=== PATIENT | male | born 1945 | race Caucasian/White ===

== ENCOUNTER 2016-04-25 19:44 | Outpatient (CLI) | payer MEDICARE | END 2016-04-26 06:10 | disposition home or self-care (01) | LOC: SLEEP 19:44 | PROVIDERS: ATTEND Nurse Practitioner | DX: G47.10 Hypersomnia, unspecified (principal) | CPT/HCPCS: 95810 ==

== ENCOUNTER 2016-05-02 19:40 | Outpatient (CLI) | payer MEDICARE ==
--- OUTSIDE RECORDS SUMMARY | 2016-05-02 20:03 | XMS REPORT | Continuity of Care Document ---
Author Author [facility] Organization [facility] Address Unknown Phone Unavailable Care Team Providers Care Senior Speech Pathologist Name Role Phone AASHISH SHETH DO PCP Insurance Providers Payer Name Policy Number Subscriber Name Relationship [employer] [id number] Michael Rollins 19 Self / Same As Patient [employer] [facility] Supp [id number] Michael Rollins 19 Self / Same As Patient Problems No problem information available. Medications No medication information available. Social History No social history. Hospital Discharge Instructions No hospital discharge instructions. Plan of Care Discharge Date 04/26/16 6:10am Prescriptions See Medication Section Functional Status No functional status results. Allergies, Adverse Reactions, Alerts No allergy information available. Immunizations No immunization records. Vital Signs No known vital signs results. Results No known relevant diagnostic tests, laboratory data and/or discharge summary. Procedures No known history of procedures. Encounters Encounter Location Arrival/Admit Date Discharge/Depart Date Attending Provider Departed Clinic [facility] 04/25/16 7:44pm 04/26/16 6: 10am JM WASSERMAN APRN
== END 2016-05-03 06:20 | disposition home or self-care (01) ==
LOC: SLEEP 19:40
PROVIDERS: ATTEND Nurse Practitioner
DX: G47.33 Obstructive sleep apnea (adult) (pediatric) (principal)
CPT/HCPCS: 95811